=== PATIENT | male | born 1950 | race Caucasian/White ===

== ENCOUNTER 2017-04-07 10:03 | Emergency (ER) | payer MEDICARE, BC ==
--- NOTE | ~2017-04-07 | ER ---
PATIENT'S NAME: GERA PIERCE [facility] AGE: 66 Y [address] ROOM: [place] [address] LOCATION: [facility] ADMIT DATE: 04/07/2017 ER/Outpatient Report DISCHARGE DATE: 04/07/2017 FAMILY PHYSICIAN: Jackson Harding MD ATTENDING PHYSICIAN: Emilio Arguello Time of Arrival: 1005 hours. Time of Evaluation/Exam: 1005 hours. CHIEF COMPLAINT: Left lower quadrant abdominal pain. HISTORY OF PRESENT ILLNESS: The patient states that he has had some left lower quadrant abdominal pain, since Saturday04/02/2017, and was seen on 04/03/[address] Chau at the [facility]. Concerned that he may have a kidney stone as he has had those in the past. He said he did have blood in his urine at the office, but x-ray did not show anything. He has not been nauseated. No vomiting. Last bowel movement was Saturday, but he says he does not feel constipated. He does not have any burning or discomfort with urination. He states the pain is an intermittent sharp pain. Reports the pain as being at 1/10 today, however, when it is a strong, this is a 4 to 5. ALLERGIES: NO KNOWN ALLERGIES. CURRENT MEDICATIONS: Include: Metformin and simvastatin. PAST MEDICAL HISTORY: 1. Vlq-ygexaix-asrbvxonu diabetes. 2. Hypercholesterolemia. 3. Kidney stones. PAST SURGICAL HISTORY: None. SOCIAL HISTORY: He denies use of tobacco, drugs, or alcohol. States Dr. Harding is his primary provider. REVIEW OF SYSTEMS: All negative other than those mentioned in the HPI. PHYSICAL EXAMINATION: PATIENT'S NAME: GERA PIERCE [facility] AGE: 66 Y [address] ROOM: [place] [address] LOCATION: ED ADMIT DATE: 04/07/2017 ER/Outpatient Report DISCHARGE DATE: 04/07/2017 FAMILY PHYSICIAN: Jackson Harding MD ATTENDING PHYSICIAN: Emilio Arguello VITAL SIGNS: He weighed 88 kg. Blood pressure is 160/77; pulse of 55; respirations 18; temperature of 96.8, tympanic; and O2 saturation is 96% on room air. GENERAL: He is awake, alert, and oriented x4. SKIN: [place], warm, and dry. RESPIRATORY: Respirations are even and nonlabored. Lung sounds are clear throughout. HEART: Regular rate and rhythm. ABDOMEN: Soft, nondistended. Bowel sounds are present. No increased pain with deep palpation. Walks in with a steady even gait. EMERGENCY ROOM COURSE: The patient was able to urinate and gave us a clean-catch UA. Laboratory work was drawn. CBC is within normal limits. Chemistry panel: BUN is 19 with a creatinine of 1.4, and glucose was 98. Urine showed 500 leukocytes, negative nitrites, and 250 of blood. Micro shows 50-100 of red blood cells, negative bacteria. CT scan, stone protocol was completed. Radiologist reports the patient has a 6-mm calculi of the left mid ureter. He also has a 2 mm left junction urine calculi. He does have some incidental prostate enlargement. The patient's last stone was in 2012. The patient states that he passed that stone on his own at home. Discussed with him possible admission for fluids and pain control. He states he would prefer to try it at home, since his pain is minimal. I did call and talk with Dr. Nany Garcia regarding the patient. She agrees that patient can try it at home. He is to follow up with Dr. Harding in the morning. IMPRESSION: Left renal calculi. PLAN: Home, increase his fluids, and rest. Prescription was written for Flomax and [place]. He is to return to the ER, if his pain increases or have difficulty urinating. Otherwise, follow up with Dr. Harding in the a.m. The patient verbalized understanding. YOLANDA BASS APRN FOR MD KATHARINA DAVIS/jesus /[id number] d: t: 04/07/17 1750, OUTPATIENT REPORT
[2017-04-07 10:31] LABS: BILIRUBIN URINE NEGATIVE (NEGATIVE); BLOOD URINE 250 /UL (NEGATIVE); GLUCOSE URINE NEGATIVE (NEGATIVE); KETONE URINE NEGATIVE (NEGATIVE); LEUKOCYTES URINE 500 /UL (NEGATIVE); NITRITE URINE NEGATIVE (NEGATIVE); PROTEIN URINE 30 mg/dL (NEGATIVE); SPEC GRAVITY URINE 1.025 (1.003-1.035); TURBIDITY URINE 2+ (CLEAR); UROBILINOGEN URINE 1 mg/dL (NORMAL)
[2017-04-07 10:43] LABS: COLOR URINE BROWN (YELLOW)
[2017-04-07 10:44] LABS: EPITHELIAL URINE RARE #/HPF (NEGATIVE); RBC URINE 50-100 #/HPF (NEGATIVE)
[2017-04-07 10:44] LABS: BASOPHIL # 0.1 K/uL (0.0-0.2); BASOPHIL % 0.7 %; EOSINOPHIL # 0.2 K/uL (0.0-0.5); EOSINOPHIL % 1.8 %; HEMATOCRIT 45.5 % (37.0-53.0); HEMOGLOBIN 15.6 g/dL (11.0-16.0); IMMATURE GRANULOCYTE % 0.3 %; LYMPHOCYTE # 1.3 K/uL (0.8-4.0); LYMPHOCYTE % 12.6 %; MCH 31.5 pg (27.0-34.0); MCHC 34.3 gm/dL (32.0-36.5); MCV 91.9 fl (83.0-98.0); MONOCYTE # 0.9 K/uL (0.0-1.0); MONOCYTE % 9.4 %; MPV 10.6 fl (9.4-12.4); NEUTROPHIL # (ANC) 7.5 K/uL (1.4-9.0); NEUTROPHIL % 75.2 %; NRBC % 0 /100WBC (0-0.00); PLATELET COUNT 206 K/uL (150-450); RBC 4.95 M/uL (3.50-5.50); RDW-CV 12.4 % (11.9-14.6)
[2017-04-07 10:45] LABS: BACTERIA URINE NEGATIVE (NEGATIVE); MUCUS URINE 1+ (NEGATIVE)
[2017-04-07 11:00] LABS: ALBUMIN 3.4 gm/dL (3.5-5.0); ANION GAP 10.5 (10.0-19.0); CALCIUM 9.1 mg/dL (8.5-10.5); CREATININE 1.4 mg/dL (0.6-1.3); POTASSIUM 4.5 mMol/L (3.7-5.1); TOTAL PROTEIN 7.4 g/dL (6.0-8.4)
[2017-04-08] MEDS ORDERED: ZOCOR20 MG PO (15:12)
[2017-04-08] MEDS ORDERED: HYDROCODON-ACE1 EAC4 PO (15:13)
[2017-04-08] MEDS ORDERED: FLOMAX0.4 MG PO (15:14)
[2017-04-08] MEDS ORDERED: CELEXA10 MG PO (15:14)
[2017-04-08] MEDS ORDERED: GLUCOPHAGE500 MG PO (15:15)
[2017-04-08] MEDS ORDERED: BIOTIN10000 MC1 PO (15:16)
[2017-04-08] MEDS ORDERED: VITAMIN E400 UNI2 PO (15:17)
[2017-04-08] MEDS ORDERED: VITAMIN A8000 UNIT PO (15:17)
[2017-04-08] MEDS ORDERED: PROBIOTIC1 EAC6 PO (15:17)
[2017-04-08] MEDS ORDERED: MULTI-DAY VITA1 EACH PO (15:18)
[2017-04-08] MEDS ORDERED: SUPER B COMPLE1 EAC1 PO (15:18)
[2017-04-08] MEDS ORDERED: ASPIRIN (CHILDR81 MG PO (15:18)
[2017-04-08] MEDS ORDERED: VITAMIN D1000 UNIT PO (15:19)
[2017-04-08] MEDS ORDERED: SAW PALMETTO450 MG PO (15:19)
[2017-04-08] MEDS ORDERED: FISH OIL CONCE1 EAC1 PO (15:20)
[2017-04-09] MEDS ORDERED: MIRALAX17 GM PO (10:44)
== END 2017-04-07 11:36 | disposition disaster alternative care site (69) ==
LOC: GMED 10:03
PROVIDERS: Nurse Practitioner Family
DX: N20.0 Calculus of kidney (principal); E11.9 Type 2 diabetes mellitus without complications; E78.00 Pure hypercholesterolemia, unspecified; Z79.84 Long term (current) use of oral hypoglycemic drugs; Z79.899 Other long term (current) drug therapy